=== PATIENT | male | born 1990 | race Caucasian/White ===

== ENCOUNTER 2019-10-24 13:30 | Emergency (ER) | payer OTHER, SELFPAY ==
[2019-10-24 13:33] VITALS: BP 136/96; PULSE 62; RESP 15; TEMP 36.7; O2SAT 98
--- NOTE | 2019-10-24 13:56 | ED.GENADUL_ITS ---
Discharge Plan Disposition Patient Disposition: HOME Condition: Stable Discharge Details Chief Complaint: Headache Clinical Impression: Acute sinusitis Primary Care Provider: Bhaskar Prado ED Provider: Aleja Quesada Home Meds and New Rx's Prescriptions: New azithromycin [Zithromax] 500 mg tablet 500 mg PO DAILY 5 Days Qty: 5 RF: 0 methylprednisolone [Medrol (Primo)] 4 mg tablets,dose pack See Rx Instructions .ROUTE .COMPLEX Qty: 21 RF: 0 Discharge Instructions Instructions: Sinusitis (ED) Additional Instructions: Take the antibiotics and steroids until finished. Drink plenty of fluids and get plenty of rest. Alternate tylenol and motrin as needed and directed for pain. Follow-up with your scheduled appointment with your primary care doctor on Friday. Return to the emergency department if you develop any worsening or new concerning symptoms. Discharge Data Discharge Date/Time-TO BE ENTERED AT DEPARTURE: 10/24/19 15:09 Discharge Physician: Aleja Quesada Medical Decision Making 1400 -- 29-year-old male with no significant past medical history presents with headache for the past 5 days. States headache is sharp and throbbing and located in his forehead and behind his right eye. He denies a history of migraines, recent injury, fever, ear pain or sore throat. He does admit to recent nasal congestion but denies any green nasal discharge. He denies sudden onset headache or thunderclap quality, so not consistent with subarachnoid hemorrhage. He denies any fever or posterior occipital pain and no report of altered mental status, so not consistent with meningitis. He has tenderness to palpation of the bilateral frontal and right maxillary sinuses. He appears nontoxic. No focal deficits on exam. Differential diagnosis includes sinusitis, dehydration, tension headache. Patient states he is mainly concerned about the possibility of aneurysm as his sister has a history of brain aneurysm. Offered patient to place an IV and give migraine cocktail, fluids and possibly CTA head and neck. He would rather hold on IV at this time. Will obtain CT head. 1500 --CT head notes acute sinusitis but no other acute intracranial findings. Patient feels good to go at this time. He appears nontoxic. He is easily ambulatory around room and appears in no acute distress. We will send with a prescription for antibiotics and steroids. Advised to follow up with the primary care doctor for re-evaluation. Usual and customary return precautions given prior to discharge. Medical Records Medical records reviewed: Yes I reviewed the patient's medical records. Imaging Data Radiologic Study: Radiologist's impression: CT Head Without Contrast Exam date and time: 10/24/2019 2:11 PM Age: 29 years old Clinical indication: Other: Headache behind R eye/foreheache, R/O mass, tumor, bleed. TECHNIQUE: Imaging protocol: Computed tomography of the head without contrast. Radiation optimization: All CT scans at this facility use at least one of these dose optimization techniques: automated exposure control; mA and/or kV adjustment per patient size (includes targeted exams where dose is matched to clinical indication); or iterative reconstruction. COMPARISON: No relevant prior studies available. FINDINGS: Brain: The ventricles and the cortical sulci are within normal limits. There is no evidence of acute hemorrhage, mass or shift. There is no evidence of an acute cortical or major vascular territory infarct. No abnormal extra-axial collections are identified. Ventricles: No significant ventricular enlargement/hydrocephalus. Bones/joints: There is no acute bony abnormality Sinuses: There is sinus mucoperiosteal thickening on the right.. There is some fluid layering dependently within the right maxillary antrum. There is mucoperiosteal thickening and some fluid layering dependently within the right frontal sinus. Mastoid air cells: No significant mastoid opacification Soft tissues: Subcutaneous soft tissues are unremarkable IMPRESSION: 1. Right-sided sinus disease. Small amount of fluid is seen layering dependently within the right maxillary antrum, right frontal sinus. Correlate clinically for acute sinusitis. 2. No significant or acute intracranial findings. A HPI General Mode of arrival: ambulatory . Date/Time Provider Initiated Documentation: 10/24/19 13:42 . Limitations to Documentation: no limitations . Information obtained by: patient . History of Present Illness 29 year old M presents to the emergency department with the chief complaint of headache, and is localized to the head and face. Patient started experiencing this day(s) (5) and it has been constant. Medication improves symptom(s), No exacerbating factors reported . Patient notes headaches; denies chest pain, cough, diaphoresis, fever/chills, loss of appetite, malaise, nausea/vomiting, ra sh, seizure, shortness of breath, syncope and weakness. Patient did receive the following treatments prior to arrival, NSAID and other (tylenol) Related Data Home Medications Medication Instructions Recorded Confirmed azithromycin [Zithromax] 500 mg PO DAILY 5 Days #5 tab 10/24/19 methylprednisolone [Medrol (Primo)] See Rx Instructions .ROUTE 10/24/19 .COMPLEX #21 dose pk Previous Rx's Medication Instructions Recorded azithromycin [Zithromax] 500 mg PO DAILY 5 Days #5 tab 10/24/19 methylprednisolone [Medrol (Primo)] See Rx Instructions .ROUTE 10/24/19 .COMPLEX #21 dose pk Allergies Allergy/AdvReac Type Severity Reaction Status Date / Time cefaclor [From [facility]] Allergy Severe HIVES Unverified 10/24/19 13:39 Penicillins Allergy Severe HIVES Unverified 10/24/19 13:39 General Stated Complaint: Headache KYLE: 3 Review of Systems All systems reviewed & are unremarkable except as noted in HPI and below Constitutional Constitutional: Reports as per HPI, Denies chills, Denies fever(s) and Reports headache(s) Eyes Eyes: Denies blurry vision ENT Ears, Nose, Mouth, and Throat: Denies dizziness, Reports headache(s), Denies sore throat and Denies throat swelling Cardiovascular Cardiovascular: Denies chest pain and Denies dyspnea Respiratory Respiratory: Denies cough and Denies dyspnea Gastrointestinal Gastrointestinal: Denies abdominal pain, Denies diarrhea and Denies vomiting Genitourinary Genitourinary: Denies hematuria and Denies dysuria Musculoskeletal Musculoskeletal: Denies back pain and Denies numbness Integumentary/Breasts Skin/Breast: Denies lesions and Denies rash Neurologic Neurologic: Denies dizziness, Reports headache(s), Denies focal weakness and Denies numbness Allergic/Immunologic Allergic/Immunologic: Denies throat swelling [facility] Medical History No significant past medical history (Acute) Surgical History H/O shoulder surgery (Chronic) Social History Smoking/Tobacco Use Status: Never Alcohol Intake: current Alcohol Intake frequency: holidays/special occasions only Drug use: Never Substance use type: does not use Do you feel safe at home: Yes Do you feel safe in your relationship?: Yes Exam Const General: cooperative and healthy appearing Orientation: alert and awake HENMT Head: normal to inspection Ears: hearing grossly normal bilaterally, external ears normal and TM's normal bilaterally General nose exam: external nose normal Face and sinus: normal facial exam and sinus tenderness frontal (bilateral) and maxillary (R side) Mouth: oral mucosae normal Teeth and gingiva: dentition normal Throat: posterior oropharynx normal Eyes General: appearance normal, both eyes and all related structures Eyelids: eyelids normal Pupils: PERRL EOM: EOM intact bilaterally Neck Neck: normal visual inspection Lymphatic: no lymphadenopathy noted Chest Chest: normal inspection of the chest Resp Effort & Inspection: normal respiratory effort and able to speak in complete sentences Cardio Rate: regular rate Skin General skin exam: no rashes or lesions noted Neuro General: alert and awake Cranial Nerves: CN's II-XI intact bilaterally Cognition: normal cognition Speech: speech normal Gait: normal gait Motor: muscle tone normal throughout and strength 5/5 throughout Sensory Exam: no sensory deficits noted Extrem General: normal to inspection, full ROM and normal capillary refill Psych Appearance: grossly normal Mental Status: mental status grossly normal Speech and Movement: speech and movement normal Affect: normal affect Thought Process: normal Course Vital Signs Vital signs: Vital Signs Temperature 98.1 F 10/24/19 13:33 Pulse 62 10/24/19 13:33 Respiratory Rate 15 10/24/19 13:33 Blood Pressure 136/96 H 10/24/19 13:33 Pulse Oximetry 98 10/24/19 13:33 Temperature 98.1 F 10/24/19 13:33 Temperature Source Temporal Artery Scan 10/24/19 13:33 Pulse 62 10/24/19 13:33 Respiratory Rate 15 10/24/19 13:33 Respiratory Effort Non-Labored 10/24/19 13:37 Blood Pressure 136/96 H 10/24/19 13:33 Pulse Oximetry 98 10/24/19 13:33 Oxygen Delivery Method Room Air 10/24/19 13:33 Oxygen Flow Rate 0 10/24/19 13:33 Pain Level 5 10/24/19 13:33
--- NOTE | 2019-10-24 14:26 | DI.CT_ITS ---
EXAM: CT HEAD WO CLINICAL HISTORY: headache behind R eye/forehead TECHNIQUE: Without contrast COMPARISON: No exams were available for comparison FINDINGS: The ventricles and sulci are consistent with the patient's age. No acute intracranial hemorrhage is present. There is no acute midline shift or mass effect. The ventricles are intact. The basilar ci sterns are patent. There is mucosal thickening in the right maxillary sinus. There does appear to be a fluid level in the right maxillary sinus. There is opacification of a few right ethmoid air cells and mucosal thickening in the right frontal sinuses. The remaining visualized paranasal sinuses are clear as are the mastoid air cells. The calvarium is intact. IMPRESSION: 1. No acute intracranial process. 2. Findings of right sinus disease. Acute sinusitis should be considered. Please correlate clinical ly.
--- NOTE | 2019-10-24 14:51 | DI.VRAD_ITS ---
PROCEDURE INFORMATION: Exam: CT Head Without Contrast Exam date and time: 10/24/2019 2:11 PM Age: 29 years old Clinical indication: Other: Headache behind R eye/foreheache, R/O mass, tumor, bleed. TECHNIQUE: Imaging protocol: Computed tomography of the head without contrast. Radiation optimization: All CT scans at this facility use at least one of these dose optimization techniques: automated exposure control; mA and/or kV adjustment per patient size (includes targeted exams where dose is matched to clinical indication); or iterative reconstruction. COMPARISON: No relevant prior studies available. FINDINGS: Brain: The ventricles and the cortical sulci are within normal limits. There is no evidence of acute hemorrhage, mass or shift. There is no evidence of an acute cortical or major vascular territory infarct. No abnormal extra-axial collections are identified. Ventricles: No significant ventricular enlargement/hydrocephalus. Bones/joints: There is no acute bony abnormality Sinuses: There is sinus mucoperiosteal thickening on the right.. There is some fluid layering dependently within the right maxillary antrum. There is mucoperiosteal thickening and some fluid layering dependently within the right frontal sinus. Mastoid air cells: No significant mastoid opacification Soft tissues: Subcutaneous soft tissues are unremarkable IMPRESSION: 1. Right-sided sinus disease. Small amount of fluid is seen layering dependently within the right maxillary antrum, right frontal sinus. Correlate clinically for acute sinusitis. 2. No significant or acute intracranial findings. A Dictated and Authenticated by: Marline Pettit MD. Ordering:DEZ Masterson MD
[2019-10-24 15:07] VITALS: BP 156/109; PULSE 60; O2SAT 98
== END 2019-10-24 15:09 | disposition home or self-care (01) ==
PROVIDERS: Emergency Provider Physician Assistant; PCP Family Medicine
DX: J01.80 Other acute sinusitis (principal)
CPT/HCPCS: 99284; 70450; 99285

== ENCOUNTER 2020-02-05 19:29 | Emergency (ER) | payer OTHER, SELFPAY ==
[2020-02-05 19:34] VITALS: BP 155/90; PULSE 78; RESP 16; TEMP 36.9; O2SAT 98
--- NOTE | 2020-02-05 19:52 | ED.GENADUL_ITS ---
Discharge Plan Disposition Patient Disposition: HOME Condition: Stable Discharge Details Chief Complaint: Cellulitis Clinical Impression: Hematoma Primary Care Provider: Bhaskar Prado ED Provider: Abdulkadir Motta Home Meds and New Rx's Prescriptions: New clindamycin HCl 150 mg capsule 450 mg PO TID 7 Days Qty: 63 RF: 0 Discharge Instructions Instructions: Hematoma (ED) Additional Instructions: Elevated above level of heart to reduce pain and swelling. Take antibiotics as prescribed. Please take probiotic or live culture once daily while on the antibiotic. Warm heat to area to speed healing. Return for worsening swelling, fever, or any other concerns. 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 Concern for developing cellulitis. I did perform a bedside ultrasound which shows a an approximately 2 x 4 cm hematoma. Discussed that these can become necrotic and did discuss with him myositis ossificans. He will perform gentle heat, massage, I will place him on a course of clindamycin. He is to take a probiotic during the use of the antibiotic. Discussed with him indications to seek reevaluation. He is stable for discharge home at this time. HPI General Mode of arrival: ambulatory . Date/Time Provider Initiated Documentation: 02/05/20 19:34 . Limitations to Documentation: no limitations . Information obtained by: patient . History of Present Illness 29 year old M presents to the emergency department with the chief complaint of R medial calf swelling, overlying erythema, Quality is described as dull and constant, and is localized to the left and lower extremity. Patient reports no radiation. Patient started experiencing this day(s) and it has been constant. No relieving factors improve symptom(s), No exacerbating factors reported . Patient did receive the following treatments prior to arrival, none Related Data Home Medications Medication Instructions Recorded Confirmed clindamycin HCl 450 mg PO TID 7 Days #63 cap 02/05/20 Previous Rx's Medication Instructions Recorded clindamycin HCl 450 mg PO TID 7 Days #63 cap 02/05/20 Allergies Allergy/AdvReac Type Severity Reaction Status Date / Time cefaclor [From Ceclor] Allergy Severe HIVES Unverified 02/05/20 19:37 Penicillins Allergy Severe HIVES Unverified 02/05/20 19:37 General Stated Complaint: Cellulitis KYLE: 5 Review of Systems Narrative: 6 systems reviewed and otherwise negative [facility] Medical History No significant past medical history (Acute) Social History Smoking/Tobacco Use Status: Current-Occasional Tobacco Type: cigarettes Alcohol Intake: current Alcohol Intake frequency: a few times a week Drug use: Never Substance use type: does not use Do you feel safe at home: Yes Do you feel safe in your relationship?: Yes Exam Narrative Exam Narrative: GEN: awake, alert, oriented 3. Pleasant, well groomed, interactive. HEAD: Normocephalic, atraumatic ENT: Mucous membranes moist, External ear exam unremarkable EYES: PERRL, EOMI NECK: Full ROM, no WAN, no menigismus EXT: Full ROM, the right medial anterior calf has an area of palpable hematoma with overlying erythema that blanches to the touch. There is no vesicles or raised rash. There is no posterior tenderness, no cords or asymmetry. Neuro: Grossly normal neurologic exam, conversant, interactive. Psych: Speech fluent, thoughts congruent, affect normal Course Vital Signs Vital signs: Vital Signs Temperature 36.9 C 02/05/20 19:34 Pulse 78 02/05/20 19:34 Respiratory Rate 16 02/05/20 19:34 Blood Pressure 155/90 H 02/05/20 19:34 Pulse Oximetry 98 02/05/20 19:34 Temperature 36.9 C 02/05/20 19:34 Pulse 78 02/05/20 19:34 Respiratory Rate 16 02/05/20 19:34 Respiratory Effort Non-Labored 02/05/20 19:39 Blood Pressure 155/90 H 02/05/20 19:34 Pulse Oximetry 98 02/05/20 19:34 End Tidal Co2 1 02/05/20 19:34
[2020-02-05] MEDS: Clindamycin 150 MG CAP, 12 CAPS/BTL 450 MG PO (19:59)
== END 2020-02-05 20:00 | disposition home or self-care (01) ==
PROVIDERS: Emergency Provider Emergency Medicine; PCP Family Medicine
DX: S80.11XA Contusion of right lower leg, initial encounter (principal); X58.XXXA Exposure to other specified factors, initial encounter; L53.8 Other specified erythematous conditions
CPT/HCPCS: 99283

== ENCOUNTER 2021-03-11 16:31 | Emergency (ER) | payer OTHER, SELFPAY ==
--- NOTE | 2021-03-11 16:28 | ED.GENADUL_ITS ---
Discharge Plan Disposition Patient Disposition: HOME Condition: Good Discharge Details Clinical Impression: AC separation, type 3 Primary Care Provider: Bhaskar Prado ED Provider: Tram Jaquez Home Meds and New Rx's Prescriptions: New morphine 15 mg tablet 15 mg PO Q8H PRNQty: 3 RF: 0 Discharge Instructions Additional Instructions: Please follow-up with orthopedic Several times a day as much your arm hang down like a pendulum and allow chin raw [id number] from shoulder to shoulder, do not attempt to do any heavy lifting Wear sling 1 week Call orthopedics on Friday Ibuprofen 600 mg every 8 hours with food Tylenol as needed for breakthrough pain I have given you several tablets of morphine, this medication is highly addictive and you should not drive for 8 hours after taking this medication, it can also cause constipation Please only take this medication for pain uncontrolled with ibuprofen and Tylenol Discharge Data Discharge Date/Time-TO BE ENTERED AT DEPARTURE: 03/11/21 18:09 Medical Decision Making Patient declines oxycodone, states that this medication does not work for him. When asked what medications are effective, patient states that Dilaudid is effective . I did discuss that this is not a typical medication choice for this injury but I was willing to supply for tablet of morphine 15 mg IR Patient placed in sling I did offer orthopedic referral, however patient states he is going to follow-up with [facility] where he has previously had surgery Discharged home in stable condition with stable vital Differential Diagnosis Differential Diagnosis: AC joint separation, shoulder dislocation, fracture, contusion Medical Records Medical records reviewed: Yes I reviewed the patient's medical records. HPI General Mode of arrival: ambulatory . Date/Time Provider Initiated Documentation: 03/11/21 16:34 . Limitations to Documentation: no limitations . Information obtained by: patient . HPI Narrative: 30-year-old male presents after a wrestling injury. Patient was wrestling with his when he slammed into his left shoulder. He has noticed a deformity and had pain since that time. He denies any strength or sensation change. He denies any neck pain, chest pain, shortness of breath. The event occurred approximately an hour prior to arrival. He describes the pain as sharp. He denies any head injury or loss of consciousness. Related Data Home Medications Medication Instructions Recorded Confirmed morphine 15 mg PO Q8H PRN #3 tab 03/11/21 Previous Rx's Medication Instructions Recorded morphine 15 mg PO Q8H PRN #3 tab 03/11/21 Allergies Allergy/AdvReac Type Severity Reaction Status Date / Time cefaclor [From Ceclor] Allergy Severe HIVES Unverified 03/11/21 16:45 Penicillins Allergy Severe HIVES Unverified 03/11/21 16:45 General KYLE: 5 Review of Systems Narrative: Review of systems obtained x7 aside from where indicated in HPI PFSH Medical History (Updated 03/11/21 @ 17:29 by ISAMAR Caruso) No significant past medical history Surgical History H/O shoulder surgery Social History Smoking/Tobacco Use Status: Current-Occasional Tobacco Type: smokeless tobacco Smoking risk assessment performed?: Yes Alcohol Intake: current Alcohol Intake frequency: a few times a week Drug use: Never Substance use type: does not use Do you feel safe at home: Yes Do you feel safe in your relationship?: Yes Exam Const General: cooperative and acute distress HENMT Other: No visible evidence of trauma Neck Other: No midline tenderness Resp Effort & Inspection: normal respiratory effort Cardio Rate: regular rate Skin General skin exam: no rashes or lesions noted Neuro General: patient alert and patient oriented x3 Other: GCS 15 Extrem Shoulder/upper arm images: 1. Deformity noted, no evidence of open fracture Other: Neurovascularly intact
--- NOTE | 2021-03-11 16:30 | DI.RAD_ITS ---
Exam(s) XR SHOULDER LT COMPLETE 2+V EXAM: XR SHOULDER LT COMPLETE 2+V CLINICAL HISTORY: left shoulder pain, question ac separation. TECHNIQUE: 2D digital imaging was performed. COMPARISON: CR RIGHT SHOULDER COMP POST REDUC from 07/13/2013 FINDINGS: BONES: No acute fracture is present. No bony destructive lesion is seen. JOINTS: The distal clavicle is superiorly located relative to the acromion. There is also a widening of the cortical clavicular distance. SOFT TISSUE: Normal. IMPRESSION: Findings consistent with a left acromioclavicular separation. DATA REPOSITORY: RADIATION DOSE DELIVERED:
[2021-03-11 16:33] VITALS: BP 157/103; PULSE 105; RESP 20; TEMP 36.7; O2SAT 97
--- NOTE | 2021-03-11 17:01 | DI.VRAD_ITS ---
PROCEDURE INFORMATION: Exam: XR Left Shoulder Exam date and time: 03/11/2021 4:39 PM Age: 30 years old Clinical indication: Injury or trauma; Other: Playing with kid; Sprain or strain; Shoulder; Left; Injury date: 03/11/21 TECHNIQUE: Imaging protocol: XR Left shoulder. Views: 2 or more views. COMPARISON: No relevant prior studies available. FINDINGS: Bones/joints: Left acromioclavicular separation. No fracture identified. The distal clavicle is dislocated superiorly and there is marked widening of the coracoclavicular space. Soft tissues: Normal. IMPRESSION: Left acromioclavicular separation. Dictated and Authenticated by: Soco Heaton MD. Ordering:MICKY Ugalde MD
[2021-03-11] MEDS: HYDROmorphone 2 MG TAB PO (18:05)
== END 2021-03-11 18:09 | disposition home or self-care (01) ==
PROVIDERS: Emergency Provider Physician Assistant; PCP Family Medicine
DX: S43.121A Dislocation of right acromioclavicular joint, 100%-200% displacement, initial encounter (principal); W18.39XA Other fall on same level, initial encounter; Y93.83 Activity, rough housing and horseplay
CPT/HCPCS: 99283; 73030

== ENCOUNTER 2021-03-13 14:59 | Outpatient (CLI) | payer OTHER, SELFPAY ==
--- NOTE | 2021-03-13 14:45 | DI.RAD_ITS ---
Exam(s) XR CLAVICLE LT EXAM: XR CLAVICLE LT CLINICAL HISTORY: F/U TECHNIQUE: COMPARISON: CR,XR XR SHOULDER LT COMPLETE 2+V from 03/11/2021 FINDINGS: Two views were obtained. Previously noted AC separation is again seen. No bony abnormality seen inv olving the clavicle or acromion as visualized on these two views. IMPRESSION: RADIATION DOSE DELIVERED: Total DLP
== END 2021-03-13 15:00 | disposition home or self-care (01) ==
LOC: DIORS 15:00
PROVIDERS: PCP Family Medicine; Referring Provider Family Medicine; Visit Provider Student in an Organized Health Care Education/Training Program
DX: S43.122D Dislocation of left acromioclavicular joint, 100%-200% displacement, subsequent encounter (principal)
CPT/HCPCS: 73000

== ENCOUNTER 2021-03-14 02:58 | Outpatient (CLI) | payer OTHER, SELFPAY ==
[2021-03-14 11:34] LABS: Source Nasal/Nares
[2021-03-14 15:18] LABS: COVID-19 PCR Negative (Negative)
== END 2021-03-14 02:59 | disposition home or self-care (01) ==
LOC: LBO 02:58
PROVIDERS: PCP Family Medicine; Visit Provider Student in an Organized Health Care Education/Training Program
DX: Z20.822 Contact with and (suspected) exposure to COVID-19 (principal); Z01.818 Encounter for other preprocedural examination
CPT/HCPCS: 87635

== ENCOUNTER 2021-03-15 08:22 | Day surgery (SDC) | payer OTHER, SELFPAY ==
[2021-03-15] VITALS (8 sets, daily range): BP systolic 98–140; BP diastolic 48–88; PULSE 57–69; RESP 15–16; TEMP 36.3–37; O2SAT 96–100; BMI 31.6
[2021-03-15] MEDS: Lactated Ringers 1,000 ML 100 ML IV (09:12)
--- NOTE | 2021-03-15 09:54 | W.ANESPRE ---
General Info Date of Service Date Performed: 03/15/21 Height: 5 ft 11 in Weight: 102.9 kg Body Mass Index (BMI): 31.6 Surgical Procedure: Operation Date: 03/15/21 12:10 Proposed Procedures Side Surgeon p ACROMIOCLAVICULAR JOINT OPEN REDUCTION INTERNAL FIXATION Left Bennie Garcia MD Meds Allergies and Home Medications Allergies Allergy/AdvReac Type Severity Reaction Status Date / Time cefaclor [From Ceclor] Allergy Severe HIVES Unverified 03/15/21 08:47 Penicillins Allergy Severe HIVES Unverified 03/15/21 08:47 Home Medication Medication Instructions Recorded morphine 15 mg PO Q8H PRN #3 tab 03/11/21 Current Visit Medications: Current Medications Generic Name Dose Route Start Last Admin Trade Name Freq PRN Reason Stop Dose Admin Ringer's Solution 1,000 mls @ 100 mls/hr 03/15/21 06:00 03/15/21 09:12 IV 04/13/21 23:59 100 mls/hr INFUSION ADDY Administration Cefazolin Sodium 3,000 mg/ 100 mls @ 200 mls/hr 03/15/21 06:00 Sodium Chloride IVPB 03/15/21 16:00 PREOP ADDY IV Miscellaneous Supplies 1 each 03/15/21 06:00 Iv Access IV 04/13/21 23:59 DIRECTED ADDY Oxycodone HCl 5 - 10 mg 03/15/21 07:17 Oxycodone 5 Mg Tab PO Q4H PRN PRN Sodium Chloride 0 ml 03/15/21 06:00 Normal Saline Flush 10 Ml Syr IV 04/13/21 23:59 PRN PRN Sodium Chloride 0 ml 03/15/21 06:00 Normal Saline 10 Ml Vial IJ 04/13/21 23:59 DIRECTED PRN Sterile Water 0 ml 03/15/21 06:00 Water,Injection,Sterile 10 Ml Vial IJ 04/13/21 23:59 DIRECTED PRN PFSH Active Problems Active Problems: Problem Status Onset Code AC separation, type 5 03/11/21 S43.109A Medical History Medical History No significant past medical history Surgical History Surgical History H/O shoulder surgery (R) RTCR, BT Tobacco Smoking/Tobacco Use Status: Current-Occasional Tobacco Type: smokeless tobacco Alcohol Alcohol Intake: current Alcohol intake frequency: a few times a week Substance Use Substance use: Never Substance use type: does not use Vital Signs and Lab Results Vital Signs Most Recent Vital Signs in EMR: Most Recent Vital Signs Temp Pulse Resp BP Pulse Ox 37.0 C 68 16 140/88 100 03/15/21 08:49 03/15/21 08:49 03/15/21 08:49 03/15/21 08:49 03/15/21 08:49 Lab Results Blood Type / Crossmatch: No Data to Display Complete Blood Count: No Data to Display Complete Metabolic Panel: No Data to Display Liver Function Panel: No Data to Display Coagulation Panel: No Data to Display Cardiac Panel: No Data to Display Arterial Blood Gas: No Data to Display Venous Blood Gas: No Data to Display Pancreas Panel: No Data to Display Thyroid Panel: No Data to Display Infectious Disease: Coronavirus (COVID-19)(PCR) Negative (Negative) 03/14/21 08:39 03/14/21 Coronavirus 2019 Source Nasal/nares 03/14/21 08:39 03/14/21 Blood Cultures: No Data to Display Toxicology Panel: No Data to Display Anesthesia Assessment and Plan Anesthesia History Personal History: No History of Anesthesia Complications Family History: No Family History of Anesthesia Complications Exercise Tolerance Exercise Tolerance: Metabolic Equivalents>4 Pertinent Negatives Pertinent Negatives: No Symptoms of GERD, No Major Cardiovascular Symptoms or Complaints, No Major Pulmonary Symptoms or Complaints and No History of CVA/TIA Cardiac & Pulmonary Exam Cardiac Exam: Normal S1/S2 Heart Sounds Pulmonary Exam: Clear Bilateral Breath Sounds Airway Exam Known Difficult Airway: No Mallampati Class: 3 Mouth Opening: Normal (> 3cm) Thyromental Distance: Greater than 3 cm Neck Range of Motion: Full ROM Neck Circumference: Normal Teeth Condition: Normal Dentition ASA Classification ASA Score: ASA 2 Emergency Case?: No NPO Status NPO Status: NPO Clears >2 hours, Solids >8 hours Anesthesia Plan Resuscitation Status: Full Code Anesthesia Technique: General Anesthesia Airway Planned: LMA Monitors Used: Standard Monitors
[2021-03-15] MEDS: ceFAZolin 3,000 MG in Normal Saline 100 ML 200 MG IVPB (13:05)
--- NOTE | 2021-03-15 14:07 | W.ANESNERVE ---
Nerve Block Single Injection Procedure Date and Time Date Performed: 03/15/21 Procedure Start: 12:19 Location Where Procedure Performed Procedure Location: PACU Reason Performed: Postoperative Analgesia Requesting Provider: Bennie Garcia Timeout Performed Timeout Performed: Yes Monitoring Used ECG, Blood Pressure and SpO2 Sterility Sterility: Hand Hygiene, Surgical Cap, Surgical Mask, Sterile Gloves, Eye Protection and Chlorhexidine Sedation Given During Procedure Sedation Given (Indicate Dose Given): Versed IV Dose:: 4 mg Patient Mental Status Patient Mental Status: Sedate with meaningful communication Nerve Block 1st Nerve Block: Laterality: Left Block Type: Interscalene Needle / Catheter Used: 80mm SonoPlex II Local Anesthetic Bolus (Indicate Dose Given): Lidocaine used for local infiltration of skin, Injected in 3-5ml increments after negative blood aspiration, Bupivacaine 0.5% Dose:: 10 cc and Exparel Dose:: 10 cc Additives (Indicate Dose Given): None Ultrasound: Sterile probe cover and gel used Ultrasound Image Saved?: Yes Nerve Stimulator: Not Used Paresthesia: None Procedure Tolerated: No Complications and Patient tolerated well Procedure Outcome: Successful Performed By: Becky Kwon Supervised By: Erich Nolen 2nd Nerve Block: Laterality: Left Block Type: Superficial Cervical Plexus Needle / Catheter Used: 80mm SonoPlex II Local Anesthetic Bolus (Indicate Dose Given): Lidocaine used for local infiltration of skin, Injected in 3-5ml increments after negative blood aspiration and Bupivacaine 0.375% Dose:: 7 cc Additives (Indicate Dose Given): None Ultrasound: Sterile probe cover and gel used Ultrasound Image Saved?: Yes Nerve Stimulator: Not Used Paresthesia: None Procedure Tolerated: No Complications and Patient tolerated well Procedure Outcome: Successful Performed By: Becky Kwon Supervised By: Erich Nolen
--- NOTE | 2021-03-15 14:27 | DI.RAD_ITS ---
Exam(s) XR SHOULDER LT 1V EXAM: XR SHOULDER LT 1V CLINICAL HISTORY: left acromiclavicular joint ORIF TECHNIQUE: 2D and realtime digital imaging was performed. CONTRAST MATERIAL: Refer to procedure report. COMPARISON: No exams were available for comparison FINDINGS: Fluoroscopy was provided for Dr. Garcia during the performance of a open reduction and fixation of th e left AC joint separation. Please refer to the procedure report for complete details. Ka,r=1.34 mGy IMPRESSION: RADIATION DOSE DELIVERED:
--- NOTE | 2021-03-15 15:03 | W.ANESPOSTOP ---
Postoperative Evaluation Date, Time and Location Date Performed: 03/15/21 Time Performed: 15:03 Patient Location: PACU Vital Signs Most Recent Imported Vital Signs: Most Recent Vital Signs Temp Pulse Resp BP Pulse Ox 36.4 C L 60 16 100/67 99 03/15/21 14:44 03/15/21 14:44 03/15/21 14:44 03/15/21 14:44 03/15/21 14:44 Pain Score Most Recent Pain Score: Most Recent Pain Score Pain Level 6 03/15/21 08:49 Assessment Mental Status: Arousable with meaningful communication Airway and Respiratory Function: Patent airway with normal (patient baseline) respiratory exam Cardiovascular Function: Hemodynamically Stable Hydration Status: Adequately Hydrated Nausea & Vomiting: No Nausea or Vomiting Pain: Pt. Denies Any Pain Peripheral Nerve Block: Regional nerve block not resolved at time of post operative discharge
--- NOTE | 2021-03-15 15:10 | W.PM.DSUDISC ---
Discharge Plan Disposition Patient Disposition: HOME Condition: Stable Discharge Details Reason For Visit: (L) SHOULDER SEPARATION Attending Provider: Bennie Garcia Primary Care Provider: Bhaskar Prado Home Meds and New Rx's Prescriptions: New aspirin 81 mg tablet,delayed release (DR/EC) 81 mg PO DAILY 14 Days Qty: 14 RF: 0 naproxen 250 mg tablet 250 - 500 mg PO BID PRN (Reason: Moderate pain or swelling) Qty: 60 RF: 0 hydromorphone [Dilaudid] 2 mg tablet 2 mg PO Q4H PRN (Reason: severe pain) Qty: 16 RF: 0 Discontinued morphine 15 mg tablet 15 mg PO Q8H PRNQty: 3 RF: 0 Discharge Instructions Additional Instructions: Surgery: AC joint ORIF with hook plate Activity: You should keep your arm at your side in a neutral position most of the time. Do not try to lift or raise your arm above your shoulder. You should use the sling whenever you are out of the house. At home it is best to remove the sling and rest the arm on a pillow at your side or support the operative side with your other hand. You may allow the arm to dangle at your side. A physical therapy prescription has been sent electronically to begin in about 2 weeks. Postop protocol: Non-weightbearing except light use for ADLs Sling when ambulatory or out of the home for 6 weeks Immediate gentle passive and active range of motion OK Do not go above 90 degrees of forward elevation or abduction for 8 weeks then progress to full Do not force end?range motion or start strengthening until plate is removed at 3 months Prescriptions: Aspirin 81 mg take 1 daily to prevent a blood clot for 2 weeks Naproxen 250 mg take 1-2 every 12 hours with a meal as needed for moderate pain Hydromorphone 2 mg take 1 every 4 hours as needed for severe pain You may use [id number] Tylenol (acetaminophen) as needed for mild pain. These pain medications may be taken all at once or in different combinations as needed. Also, recommend Colace (docusate) as a stool softener as surgery and pain medicine cause constipation. Dressings: Keep bandage on until follow-up. Please keep clean and dry. If it needs to be changed or falls off, please replace with a wide Band-Aid. Follow-up: 10-[address] Garcia You may take off the leg compression stockings this evening at home. You may also leave them on a few days longer if you have a history of leg swelling or edema. Let us know right away if you develop any redness, drainage, fevers, chest pain, or trouble breathing. Do not drink alcohol or drive for at least 24 hours after anesthesia. Please call the office during business hours with any questions or concerns. Referrals: Bennie Garcia MD [ [facility] STAFF PHYSICIAN] - Discharge Orders Discharge Orders: Discharge Order (Routine); Ordered 03/15/21 Ordered By: Bennie Garcia DS: Diagnosis Discharge Diagnosis (1) Acromioclavicular separation: Status: Acute
--- NOTE | 2021-03-15 15:26 | W.PM.OP ---
Date of service: 03/15/21 Time of Service: 13:30 Operative Note Operative Note DATE OF PROCEDURE: 03/15/21 PRE-OP DIAGNOSIS: Left high-grade shoulder separation POST-OP DIAGNOSIS: same PROCEDURE: Left AC joint open reduction internal fixation with hook plate, CPT #44896 SURGEON: Bennie Garcia DINING CAR CONDUCTOR: Edwin Bill ANESTHESIA TYPE: Local By Surgeon, General LMA/ETT and Primary Nerve Block Refer to Anesthesia Record Patient was transported to: PACU Patient's condition: stable Implants: Synthes 3.5mm LCP Clavicle Hook Plate System: 5-hole plate with 1x 3.5mm cortex screws and 3x 3.5mm locking screws Indications: Please see complete medical record for details. Findings: Complete disruption of both before meals and CC ligaments with superior displacement of the distal clavicle and horizontal and vertical instability Procedure Description: In the operating room, general anesthesia was induced. The patient was positioned supine on the operating room table. All bony prominences were well-padded. Preoperative antibiotics were administered. The left shoulder was prepped and draped in the usual sterile fashion. The correct patient, procedure, and side of the procedure were all verified prior to incision. The distal clavicle was superior and prominent. Fluoroscopic guidance used to confirm the location of the AC joint. 30 cc of 0.5% bupivacaine containing epinephrine was infiltrated about the planned superior distal clavicle and AC joint incision. Sharp dissection was carried through the skin and subcutaneous tissue exposing a denuded elevated distal clavicle. There were no supraclavicular nerves to preserve. A combination of blunt and sharp dissection was used to expose a few centimeters of the superior aspect of the distal clavicle taking care to elevate the periosteum and deep tissues in a full-thickness tissue sleeve. The AC joint had majority capsule and meniscal homologue still attached to the acromion so it was preserved. Metzenbaum scissors was used to open a small defect posterior to the AC joint for planned hook placement. Bone forceps were used to elevate the distal clavicle and inspect the coracoid and undersurface acromion for possible CC ligament repair. The CC ligaments were not readily identifiable but with provisional reduction of the clavicle the undersurface tissues had good opposition as well as reduction of the distal capsular and AC joint tissue still attached to the acromion. Hook plate templates were trialed starting with the 12 mm, which had difficulty reducing the distal clavicle as it was over reducing. The 15 mm hook had excellent reduction and good fixation strength. The 18 mm hook length under reduced of clavicle and was not in solid contact with the acromion. The 15 mm hook option was selected and a 5-hole plate 3.5mm LCP plate was inserted, distal clavicle reduced under direct visualization in both the horizontal and vertical planes, and clamped in place flush to the superior aspect of the distal clavicle. Fluoroscopy confirmed appropriate hook and plate placement as well as reduction of the AC joint. The middle oblong hole was then predrilled and an appropriate length 3.5 mm cortex screw inserted compression plate to bone. The next more medial and lateral screw sites were predrilled and fixed with 3.5 mm locking screws. The more anterior of the 2 distalmost screws was also predrilled and filled with a 3.5 mm locking screw. The cortex screw was final tightened. The construct was tested and demonstrate excellent vertical and good horizontal stability. There was no way to superiorly displaced the distal end of the clavicle relative to the acromion. All hardware was stable on testing. The deep wound was copiously irrigated with normal saline. The superior AC joint capsule as well as periosteum and deep tissues over the superior clavicle and acromion were closed using buried interrupted 2-0 Monocryl. Subcutaneous tissue was closed using 2-0 Monocryl in a buried fashion. The skin was closed with 3-0 Monocryl in a running subcuticular fashion. The incision was covered with skin glue followed by Mepilex bandage. The patient awoke from anesthesia without complication and was transferred to the recovery room in a stable condition.
--- NOTE | 2021-03-15 15:45 | NUR.NOTE ---
Nursing Note:03/15/21 Pt arrived to DSU via stretcher from PACU. During report, Charisma Villaseñor RN told this RN Pt requesting a Saline flush for his eyes. This nurse has no order for this intervention, in the past, anesthesia has administered saline flush to eyes post surgery for dry scratchy eyes. When asked by this RN to the Pt about the flush for the eyes, the patient states, one way or another I will get a flush down here. This nurse asked the Pt to understand we would try to help, but needed to go through proper channels. Charge nurse Margo Bill RN notified anesthesia via webex the need for Pt. Selene Land CRNA came over to DSU asking why can't we just give the flush. This nurse again stated no order for intervention, but this nurse could pull a flush from the [employer] for anesthesia if she was willing to administer. Flush was pulled by this nurse and handed to Selene Land CRNA who asked Pt if he would like her to administer, Pt had stated he could do it himself, so she handed saline flush to Pt who flushed his eyes for his dry contacts discomfort.HE
== END 2021-03-15 16:10 | disposition home or self-care (01) ==
PROVIDERS: PCP Family Medicine; Visit Provider Student in an Organized Health Care Education/Training Program
PROC: (CPT 23515; principal; 2021-03-15 12:00)
DX: S43.102A Unspecified dislocation of left acromioclavicular joint, initial encounter (principal); Y93.83 Activity, rough housing and horseplay
CPT/HCPCS: 23550; 73020; J0690; J1100; J1885; J2001; J2250; J2405; J2704

== ENCOUNTER 2021-03-28 08:55 | Outpatient (CLI) | payer OTHER, SELFPAY ==
--- NOTE | 2021-03-28 08:40 | DI.RAD_ITS ---
Exam(s) XR CLAVICLE LT EXAM: XR CLAVICLE LT CLINICAL HISTORY: f/u. TECHNIQUE: 2D digital imaging was performed. COMPARISON: CR XR CLAVICLE LT from 03/13/2021 FINDINGS: There has been interval surgery at the level of the left AC joint with placement of a dorsal plate wi th of the R which supports a metallic device through the AC joint with extension into the undersurfac e of the acromion and with subsequent realignment of the AC joint. No fracture. No loosening eviden t. Glenohumeral joint appears unremarkable. IMPRESSION: DATA REPOSITORY: RADIATION DOSE DELIVERED:
== END 2021-03-28 08:56 | disposition home or self-care (01) ==
LOC: DIORS 08:55
PROVIDERS: PCP Family Medicine; Referring Provider Family Medicine; Visit Provider Student in an Organized Health Care Education/Training Program
DX: S43.122D Dislocation of left acromioclavicular joint, 100%-200% displacement, subsequent encounter (principal)
CPT/HCPCS: 73000

== ENCOUNTER 2021-04-17 11:23 | Outpatient (CLI) | payer OTHER, SELFPAY ==
--- NOTE | 2021-04-17 11:00 | DI.RAD_ITS ---
Exam(s) XR CLAVICLE LT EXAM: XR CLAVICLE LT CLINICAL HISTORY: f/u TECHNIQUE: 2D digital imaging was performed. COMPARISON: CR XR CLAVICLE LT from 03/28/2021 FINDINGS: BONES: No acute fracture is present. No bony destructive lesion is seen. JOINTS: No dislocation present. There are stable postsurgical changes at the left AC joint. SOFT TISSUE: Normal. IMPRESSION: Stable postsurgical changes of the left AC joint. DATA REPOSITORY: RADIATION DOSE DELIVERED:
== END 2021-04-17 11:24 | disposition home or self-care (01) ==
LOC: DIORS 11:23
PROVIDERS: PCP Family Medicine; Referring Provider Family Medicine; Visit Provider Student in an Organized Health Care Education/Training Program
DX: S43.102D Unspecified dislocation of left acromioclavicular joint, subsequent encounter (principal); X58.XXXD Exposure to other specified factors, subsequent encounter
CPT/HCPCS: 73000

== ENCOUNTER 2021-06-13 12:56 | Outpatient (CLI) | payer OTHER, SELFPAY ==
--- NOTE | 2021-06-13 11:15 | DI.RAD_ITS ---
Exam(s) XR CLAVICLE LT EXAM: XR CLAVICLE LT CLINICAL HISTORY: clavicle fx f/u. TECHNIQUE: 2D digital imaging was performed. COMPARISON: CR XR CLAVICLE LT from 04/17/2021 FINDINGS: BONES: There are stable post operative changes present. No new fracture or dislocation. JOINTS: The joint spaces are well maintained. No joint effusion is present. SOFT TISSUE: Normal. IMPRESSION: Stable postoperative changes. DATA REPOSITORY: RADIATION DOSE DELIVERED:
== END 2021-06-13 12:57 | disposition home or self-care (01) ==
LOC: DIORS 12:56
PROVIDERS: PCP Family Medicine; Referring Provider Family Medicine; Visit Provider Student in an Organized Health Care Education/Training Program
DX: S43.035A Inferior dislocation of left humerus, initial encounter (principal); X58.XXXA Exposure to other specified factors, initial encounter
CPT/HCPCS: 73000

== ENCOUNTER 2021-06-21 11:22 | Day surgery (SDC) | payer OTHER, SELFPAY ==
[2021-06-21 07:57] LABS: Source Nasal/Nares
[2021-06-21 08:58] LABS: COVID-19 PCR Negative (Negative)
[2021-06-21 11:38] VITALS: BP 135/85; PULSE 66; RESP 16; TEMP 36.6; O2SAT 98
[2021-06-21] MEDS: Lactated Ringers 1,000 ML 100 ML IV (11:57)
--- NOTE | 2021-06-21 12:00 | DI.RAD_ITS ---
Exam(s) XR SHOULDER LT 1V EXAM: XR SHOULDER LT 1V CLINICAL HISTORY: LEFT SHOULDER AC SEPARATION. TECHNIQUE: 2D and realtime digital imaging was performed. COMPARISON: No exams were available for comparison FINDINGS: Fluoroscopy was provided in the OR for Dr. Hale. Hard copy images show placement of a fixation elisabeth te along the distal clavicle for fracture fixation. Please see procedure note for details. Fluoro time 8.7 seconds RADIATION DOSE DELIVERED: baldomero Soto=0.58 mGy
--- NOTE | 2021-06-21 12:16 | W.ANESPRE ---
General Info Date of Service Date Performed: 06/21/21 Height: 5 ft 11 in Weight: 104.78 kg Body Mass Index (BMI): 32.2 Surgical Procedure: Operation Date: 06/21/21 13:10 Proposed Procedures Side Surgeon p Hardware Removal shoulder Left Bennie Garcia MD Actual Procedures Side Surgeon p Hardware Removal Shoulder Left Bennie Garcia MD Meds Allergies and Home Medications Allergies Allergy/AdvReac Type Severity Reaction Status Date / Time cefaclor [From Ceclor] Allergy Severe HIVES Verified 06/21/21 11:44 Penicillins Allergy Severe HIVES Verified 06/21/21 11:44 Home Medication Medication Instructions Recorded Unknown [No Known Home Meds] 04/17/21 Current Visit Medications: Current Medications Generic Name Dose Route Start Last Admin Trade Name Freq PRN Reason Stop Dose Admin Ringer's Solution 1,000 mls @ 100 mls/hr 06/21/21 06:00 06/21/21 11:57 IV 07/20/21 23:59 100 mls/hr INFUSION ADDY Administration Cefazolin Sodium 3,000 mg/ 100 mls @ 200 mls/hr 06/21/21 06:00 Sodium Chloride IVPB 06/21/21 16:00 PREOP ADDY IV Miscellaneous Supplies 1 each 06/21/21 06:00 Iv Access IV 07/20/21 23:59 DIRECTED ADDY Oxycodone HCl 5 - 10 mg 06/21/21 12:07 Oxycodone 5 Mg Tab PO Q4H PRN PRN Sodium Chloride 0 ml 06/21/21 06:00 Normal Saline Flush 10 Ml Syr IV 07/20/21 23:59 PRN PRN Sodium Chloride 0 ml 06/21/21 06:00 Normal Saline 10 Ml Vial IJ 07/20/21 23:59 DIRECTED PRN Sterile Water 0 ml 06/21/21 06:00 Water,Injection,Sterile 10 Ml Vial IJ 07/20/21 23:59 DIRECTED PRN PFSH Active Problems Active Problems: Problem Status Onset Code Acromioclavicular separation 03/11/21 S43.109A Medical History Medical History No significant past medical history Surgical History Surgical History H/O shoulder surgery (R) RTCR, BT Tobacco Smoking/Tobacco Use Status: Current-Occasional Tobacco Type: smokeless tobacco Alcohol Alcohol Intake: current Alcohol intake frequency: a few times a week Substance Use Substance use: Never Substance use type: does not use Vital Signs and Lab Results Vital Signs Most Recent Vital Signs in EMR: Most Recent Vital Signs Temp Pulse Resp BP Pulse Ox 36.6 C 66 16 135/85 98 06/21/21 11:38 06/21/21 11:38 06/21/21 11:38 06/21/21 11:38 06/21/21 11:38 Lab Results Blood Type / Crossmatch: No Data to Display Complete Blood Count: No Data to Display Complete Metabolic Panel: No Data to Display Liver Function Panel: No Data to Display Coagulation Panel: No Data to Display Cardiac Panel: No Data to Display Arterial Blood Gas: No Data to Display Venous Blood Gas: No Data to Display Pancreas Panel: No Data to Display Thyroid Panel: No Data to Display Infectious Disease: Coronavirus (COVID-19)(PCR) Negative (Negative) 06/21/21 07:45 06/21/21 Coronavirus 2019 Source Nasal/Nares 06/21/21 07:45 06/21/21 Blood Cultures: No Data to Display Toxicology Panel: No Data to Display Anesthesia Assessment and Plan Anesthesia History Personal History: No History of Anesthesia Complications Family History: No Family History of Anesthesia Complications Exercise Tolerance Exercise Tolerance: Metabolic Equivalents>4 Pertinent Negatives Pertinent Negatives: No Symptoms of GERD, No Major Cardiovascular Symptoms or Complaints, No Major Pulmonary Symptoms or Complaints and No History of CVA/TIA Cardiac & Pulmonary Exam Cardiac Exam: Normal S1/S2 Heart Sounds Pulmonary Exam: Clear Bilateral Breath Sounds Airway Exam Known Difficult Airway: No Mallampati Class: 3 Mouth Opening: Normal (> 3cm) Thyromental Distance: Greater than 3 cm Neck Range of Motion: Full ROM Neck Circumference: Normal Teeth Condition: Normal Dentition ASA Classification ASA Score: ASA 2 Emergency Case?: No NPO Status NPO Status: NPO Clears >2 hours, Solids >8 hours Anesthesia Plan Resuscitation Status: Full Code Anesthesia Technique: General Anesthesia Airway Planned: Endotracheal Tube Monitors Used: Standard Monitors
[2021-06-21 12:36] VITALS: BMI 32.2
[2021-06-21] MEDS: ceFAZolin 3,000 MG in Normal Saline 100 ML 200 MG IVPB (13:12)
[2021-06-21] MEDS: Bupivacaine 0.25% Pres-Free 10 ML VIAL (14:03)
[2021-06-21 14:31] VITALS: BP 105/54; PULSE 58; RESP 12; TEMP 36.5; O2SAT 100
--- NOTE | 2021-06-21 14:33 | W.PM.DSUDISC ---
Discharge Plan Disposition Patient Disposition: HOME Condition: Stable Discharge Details Reason For Visit: Left shoulder surgery Attending Provider: Bennie Garcia Primary Care Provider: Gemma Cevallos Home Meds and New Rx's Prescriptions: New naproxen 250 mg tablet 250 - 500 mg PO BID PRN (Reason: Moderate pain or swelling) Qty: 30 RF: 0 hydromorphone 2 mg tablet 2 mg PO Q4H PRN (Reason: severe pain) Qty: 7 RF: 0 Discharge Instructions Additional Instructions: Surgery: Left AC joint removal of hook plate Activity: Weightbearing as tolerated. May use sling for comfort for 1-2 weeks. A physical therapy prescription will be provided separately in the office at follow up if needed. Prescriptions: Naproxen 250 mg take 1-2 every 12 hours with a meal as needed for moderate pain Hydromorphone 2 mg take 1 every 4 hours as needed for severe pain You may use [id number] Tylenol (acetaminophen) as needed for mild pain. These pain medications may be taken all at once or in different combinations as needed. Also, recommend Colace (docusate) as a stool softener as surgery and pain medicine cause constipation. Dressings: Keep bandage on until follow-up. Please keep clean and dry for at least 1 week. If it needs to be changed or falls off, please replace with a wide Band-Aid. Follow-up: 10-[address] Garcia (07/04/21 at 2:30 PM) Let us know right away if you develop any redness, drainage, fevers, chest pain, or trouble breathing. Do not drink alcohol or drive for at least 24 hours after anesthesia. Please call the office during business hours with any questions or concerns. Referrals: Bennie Garcia MD [ [facility] STAFF PHYSICIAN] - Discharge Orders Discharge Orders: Discharge Order (Routine); Ordered 06/21/21 Ordered By: Bennie Garcia DS: Diagnosis Discharge Diagnosis (1) Acromioclavicular separation: Status: Acute
[2021-06-21 14:36] VITALS: BP 102/53; PULSE 57; RESP 11; TEMP 36.5; O2SAT 98
[2021-06-21 14:41] VITALS: BP 107/66; PULSE 56; RESP 12; TEMP 36.5; O2SAT 98
--- NOTE | 2021-06-21 15:00 | W.PM.OP ---
Date of service: 06/21/21 Time of Service: 13:30 Operative Note Operative Note DATE OF PROCEDURE: 06/21/21 PRE-OP DIAGNOSIS: Left AC joint retained hook plate POST-OP DIAGNOSIS: same PROCEDURE: Left AC joint removal of hook plate, CPT # 22323 SURGEON: Bennie Garcia GUITAR MAKER HAND: None None ANESTHESIA TYPE: Local By Surgeon and General LMA/ETT Refer to Anesthesia Record ESTIMATED BLOOD LOSS: 10 PATHOLOGY: none sent COMPLICATIONS: None Patient was transported to: PACU Patient's condition: stable Indications: Please see complete medical record for details. Findings: Healed and stable AC joint after hardware removal Procedure Description: In the operating room, general anesthesia was induced. The patient was positioned supine on the operating room table. All bony prominences were well-padded. Preoperative antibiotics were administered. The left distal clavicle was prepped and draped in the usual sterile fashion. The correct patient, procedure, and side of the procedure were all verified prior to incision. 30 cc of 0.5% bupivacaine containing epinephrine was infiltrated about the prior incision superficially and deep. The AC joint and medial extent of the plate was localized under fluoroscopic guidance and the corresponding part of the prior incision was then opened sharply through tissue full-thickness down to hardware. The AC joint distal clavicle hardware and screws were all covered with maya tissue. The distal screws were localized in the anterior margin of the plate cleared using elevator. The distal locking screw and then cortex screw were removed. The incision was carried slightly medially to allow for addition medial excursion of the tissues. The anterior and superior margin of the plate was cleared again of maya tissue using an elevator. The next lateral screw followed by the last lateralmost screw were removed in entirety. C-arm fluoroscopy confirmed complete screw removal. There was no spurring or raise of distal clavicle. Hook plate remained firmly in place. Various elevators were then used to free the plate from significant healing scar tissue along the anterior and superior margin preserving tissue for subsequent repair. The plate was then lifted and rotated forward so as not to disrupt the AC joint or cause damage with the hook aspect and then rotated forward up and out allowing the hook aspect to slide out of the posterior aspect of the AC joint atraumatically. The distal clavicle was then tested manually and demonstrated excellent stability both horizontal and vertical. Under fluoroscopic guidance bone clamps were used to test the clavicle, which again demonstrated excellent stability with physiologic motion and no superior raise on stress testing. Fluoroscopic images were obtained showing complete hardware removal and stable distal clavicle and AC joint. The wound was irrigated. The superior exposed clavicle was then smoothed of rough bone about the plate scallops and the screw holes were lightly abraded. The wound was copiously irrigated normal saline. Hemostasis readily achieved. An additional 20 cc of 0.25% plain bupivacaine was infiltrated about the deep and superficial tissues. Strong deep tissue was then closed over the distal clavicle using 2-0 Monocryl in a fbfhbs-je-zbahl fashion. Subcutaneous tissue was then closed in 2-0 Monocryl in a buried interrupted fashion. The skin was closed using 3-0 Monocryl in a running subcuticular fashion. Skin glue was applied over the incision allowed to dry and then a Mepilex Band-Aid applied. The patient awoke from anesthesia without complication and was transferred to the recovery room in a stable condition.
[2021-06-21 15:01] VITALS: BP 105/62; PULSE 52; RESP 16; TEMP 36.3; O2SAT 99
[2021-06-21] MEDS: oxyCODONE 5 MG TAB PO (15:15)
[2021-06-21 15:31] VITALS: BP 128/78; PULSE 53; RESP 16; TEMP 36.4; O2SAT 98
--- NOTE | 2021-06-21 17:06 | W.ANESPOSTOP ---
Postoperative Evaluation Date, Time and Location Date Performed: 06/21/21 Time Performed: 17:07 Patient Location: Day Surgery Unit Vital Signs Most Recent Imported Vital Signs: Most Recent Vital Signs Temp Pulse Resp BP Pulse Ox 36.4 C L 53 L 16 128/78 98 06/21/21 15:31 06/21/21 15:31 06/21/21 15:31 06/21/21 15:31 06/21/21 15:31 Pain Score Most Recent Pain Score: Most Recent Pain Score Pain Level 6 06/21/21 15:31 Assessment Mental Status: Awake (Alert & Oriented to Patient Baseline) Airway and Respiratory Function: Patent airway with normal (patient baseline) respiratory exam Cardiovascular Function: Hemodynamically Stable Hydration Status: Adequately Hydrated Nausea & Vomiting: No Nausea or Vomiting Pain: Pt. Denies Any Pain Peripheral Nerve Block: Patient did not receive a nerve block Postoperative Comments:: Patient discharged prior to anesthesia being able to see him. Per nursing no complaints and patient did well
== END 2021-06-21 15:40 | disposition home or self-care (01) ==
PROVIDERS: PCP Family Medicine; Visit Provider Student in an Organized Health Care Education/Training Program
PROC: (CPT 20680; principal; 2021-06-21 13:00)
DX: Z47.2 Encounter for removal of internal fixation device (principal); S43.109D Unspecified dislocation of unspecified acromioclavicular joint, subsequent encounter
CPT/HCPCS: 20680; 87635; 73020; J0690; J1100; J1885; J2001; J2405; J2704

== ENCOUNTER 2021-07-04 14:43 | Outpatient (CLI) | payer OTHER, SELFPAY ==
--- NOTE | 2021-07-04 14:30 | DI.RAD_ITS ---
Exam(s) XR SHOULDER LT 1V EXAM: XR SHOULDER LT 1V CLINICAL HISTORY: follow up. TECHNIQUE: 2D digital imaging was performed. COMPARISON: CR,XR XR SHOULDER LT COMPLETE 2+V from 03/11/2021 CR XR CLAVICLE LT from 06/13/2021 CR XR CLAVICLE LT from 06/13/2021 FINDINGS: There has been removal of the left clavicle and AC joint hardware which was evident on the 06/13/2021 images. No remaining metallic density. No radiographic evidence of osteomyelitis. Slight offset o f the AC joint is noted, proximally 4 millimeters. No osseous lesions. No radiographic evidence of osteomyelitis. IMPRESSION: DATA REPOSITORY: RADIATION DOSE DELIVERED:
== END 2021-07-04 14:44 | disposition home or self-care (01) ==
LOC: DIORS 14:43
PROVIDERS: PCP Family Medicine; Referring Provider Family Medicine; Visit Provider Physician Assistant Surgical
DX: S43.085D Other dislocation of left shoulder joint, subsequent encounter (principal)
CPT/HCPCS: 73020

== ENCOUNTER 2021-10-17 02:03 | Outpatient (CLI) | payer OTHER, SELFPAY ==
[2021-10-17] MEDS: Gadoterate meglumine 20 ML VIAL IVP (12:42)
--- NOTE | 2021-10-17 12:55 | DI.MRI_ITS ---
Exam(s) MR IAC BRAIN WO/W EXAM: MR IAC BRAIN WO/W CLINICAL HISTORY: ASYMMETRIC [place], ACOUSTIC TRAUMA,[id number] TECHNIQUE: MR examination of the brain was performed according to the usual protocol with additiona l multiplanar high-resolution pre and post contrast imaging the posterior fossa. Whole brain axial T 1 weighted imaging was also obtained post contrast. COMPARISON: No exams were available for comparison FINDINGS: The ventricular system is normal in appearance. There is no mass lesion or enhancing lesion in the b rain. No significant intracranial signal abnormality seen. Diffusion-weighted imaging shows no diffusion restriction to suggest cerebral infarction. Susceptibility weighted imaging shows no evidence of intracranial hemorrhage. The orbital and temporal bone structures appear intact. The pituitary appears intact. There is normal flow void in the chrrth-rh-Dnxakx vasculature. Imaging of the posterior fossa region shows no abnormality of the cerebellum or alvarez. The internal a uditory canals and inner and middle ear structures appear normal. There is no mass lesion or enhanci ng lesion. IMPRESSION: Negative brain MRI with attention to the posterior fossa structures as described above. No mass lesi on or enhancing lesion. RADIATION DOSE DELIVERED: Total DLP
== END 2021-10-17 02:23 ==
PROVIDERS: PCP Family Medicine; Visit Provider Occupational Therapist
DX: H83.3X9 Noise effects on inner ear, unspecified ear (principal)
CPT/HCPCS: 70553

== ENCOUNTER 2022-01-05 14:24 | Emergency (ER) | payer OTHER, SELFPAY ==
[2022-01-05 14:28] VITALS: BP 145/86; PULSE 74; RESP 14; TEMP 36.6; O2SAT 97
--- NOTE | 2022-01-05 14:52 | ED.GENADUL_ITS ---
Discharge Plan Disposition Patient Disposition: HOME Condition: Stable Discharge Details Clinical Impression: Iritis, traumatic Primary Care Provider: Gemma Cevallos ED Provider: Jacob Alexandre Home Meds and New Rx's Prescriptions: No Action No Known Home Meds 0RF Discharge Instructions Instructions: Iritis (ED) Additional Instructions: You may continue to take fvoi-rvd-onriqce acetaminophen as needed for pain control. It is very important that you rest this evening and do not perform any physical activities. Dr. Lemus salmon troll fisher at [facility] will see you tomorrow morning at 9 AM in the eye clinic office 4B. It is very important that you make this appointment to double check your vision and obtain clearance for work return or restrictions as needed. If you have any new or significant worsening of symptoms please feel free to call [facility] and speak to salmon troll fisher on-call for advice before going to the emergency department but you may always feel free to come to the emergency department and we will also attempt to contact ophthalmology. Stand Alone Forms: Work Release Referrals: [facility] [Outside] (Tomorrow morning at 9 AM in the eye clinic office 4B) Discharge Data Discharge Date/Time-TO BE ENTERED AT DEPARTURE: 01/05/22 16:29 Medical Decision Making Patient presenting to the emergency department for chief complaint of left eye trauma. Was playing with Nerf guns with child and significant other when one of the foam darts with blue rubber tip struck him directly in the left eye while it was open. Patient immediately removed contact but does state immediate visi on change that occurred after injury. Physical exam shows a somewhat fixed nonreactive left pupil with diffuse opacification/cloudy anterior chamber and some question of possible subtle hyphema. EOMs are intact, patient does have color intact in affected eye and can see objects but significant vision change with no identification of objects. Plan concern for significant eye trauma. I did call [facility] and requested consult with ophthalmology. Spoke to [facility] Dr. Lemus with ophthalmology. He stated possible developing hyphema and traumatic iritis is most likely cause to patient's symptoms. He recommended strict rest and sleeping with head of bed elevated with use of acetaminophen as needed for discomfort and to be seen tomorrow morning at 9 AM in their office for evaluation. Stated no need at this time for emergent transfer but patient may contact [facility] for any change in condition or worsening. Patient is in agreement with this plan of care and states full understanding of recommendations. After discussion of diagnosis and plan of care patient has no further needs, questions, or concerns and states clear understanding to return to the emergency department for any worsening symptoms. HPI General Mode of arrival: ambulatory . Date/Time Provider Initiated Documentation: 01/05/22 14:45 . Limitations to Documentation: no limitations . Information obtained by: patient . History of Present Illness 31 year old M presents to the emergency department with the chief complaint of left neye trauma, with intensity rated at 1. Quality is described as aching, and is localized to the left. Patient reports no radiation. Patient started experiencing this minute(s) (15) and it has been constant. improves with No relieving factors improve symptom(s), No exacerbating factors reported . Patient notes no other symptoms.. Patient did receive the following treatments prior to arrival, none Related Data Home Medications Medication Instructions Recorded Confirmed Unknown [No Known Home Meds] 01/05/22 01/05/22 Allergies Allergy/AdvReac Type Severity Reaction Status Date / Time [facility] Allergy Severe HIVES Verified 01/05/22 14:36 Penicillins Allergy Severe HIVES Verified 01/05/22 14:36 General Stated Complaint: EyeProblem KYLE: 2 Review of Systems Narrative: 6 systems reviewed and unremarkable with pertinent review of systems marked below Constitutional Constitutional: Denies headache(s) Eyes Eyes: Reports as per HPI, Denies blind spots, Reports blurry vision, Reports change in vision, Reports dry eyes, Reports requires corrective lenses and Re ports photophobia ENT Ears, Nose, Mouth, and Throat: Denies facial pain, Denies headache(s) and Denies nasal trauma Neurologic Neurologic: Denies headache(s) PFSH All Active Problems (Updated 01/05/22 @ 16:17 by Jacob Alexandre NP) Iritis, traumatic (Acute) Acromioclavicular separation (Acute 03/11/21) s/p ORIF with hook plate DOS: 03/16/2021 s/p removal of hardware 06/21/2021 Medical History No significant past medical history Surgical History H/O shoulder surgery (R) RTCR, BT Social History Smoking/Tobacco Use Status: Current-Occasional Tobacco Type: smokeless tobacco Smoking risk assessment performed?: Yes Alcohol Intake: current Alcohol Intake frequency: a few times a week Drug use: Never Substance use type: does not use Current gender identity: male Do you feel safe at home: Yes Do you feel safe in your relationship?: Yes Exam Const General: cooperative, no acute distress and not ill appearing Orientation: alert, awake and oriented x3 HENMT Head: normal to inspection, normocephalic and atraumatic Ears: hearing grossly normal bilaterally Mouth: moist mucous membranes Eyes Alignment and Position: alignment normal Periorbital: periorbital findings normal Eyelids: eyelids normal Conjunctivae: conjunctivae normal Sclera: sclerae normal Cornea: corneas abnormal on the left fluorescein used, diffuse opacification and edema and fluorescein used Pupils: not reactive on the left EOM: EOM intact bilaterally Direct ophthalmoscopy: anterior chamber abnormal hyphema noted on the left Resp Effort & Inspection: normal respiratory effort, able to speak in complete sentences and no respiratory distress Skin General skin exam: no rashes or lesions noted Neuro General: patient alert, patient awake, patient oriented x3 and moves all extremities Course Vital Signs Vital signs: Vital Signs Temperature 36.6 C 01/05/22 14:28 Pulse 74 01/05/22 14:28 Respiratory Rate 14 01/05/22 14:28 Blood Pressure 145/86 H 01/05/22 14:28 Pulse Oximetry 97 01/05/22 14:28 Temperature 36.6 C 01/05/22 14:28 Temperature Source Skin 01/05/22 14:28 Pulse 74 01/05/22 14:28 Respiratory Rate 14 01/05/22 14:28 Respiratory Effort 01/05/22 14:37 Blood Pressure 145/86 H 01/05/22 14:28 Blood Pressure Position Supine 01/05/22 14:28 Pulse Oximetry 97 01/05/22 14:28 Oxygen Delivery Method Room Air 01/05/22 14:28 Oxygen Flow Rate 0 01/05/22 14:28 Pain Level 2 01/05/22 14:28 PAWSS Have you Been Recently Intoxicated or Drunk Within the Last 30 days?: No Have you Ever Experienced Previous Episodes of Alcohol Withdrawal?: No Have you ever Experienced Withdrawal Seizures?: No Have you ever Experienced Delirium Tremens(DT)s?: No Have you ever undergone Alcohol Rehabilitation Treatment (i.e, inpt ot outpatient treatment programs)?: No Have you ever Experienced Blackouts?: No Have you ever Combined Alcohol with other Downers within the last 90 days?: No Have you ever Combined Alcohol with any other Substance of Abuse during the last 90 days?: No Positive Blood Alcohol level on Presentation? [PCS.BAL]: No Evidence of Increased Autonomic Activity (i.e. HR>120, tremor, sweating, agitation, nausea)?: No Result: 0
== END 2022-01-05 16:29 | disposition home or self-care (01) ==
PROVIDERS: Emergency Provider Nurse Practitioner Family; PCP Family Medicine
DX: H20.042 Secondary noninfectious iridocyclitis, left eye (principal); W20.8XXA Other cause of strike by thrown, projected or falling object, initial encounter
CPT/HCPCS: 99283

== ENCOUNTER 2025-04-26 17:12 | Outpatient (CLI) | payer OTHER, SELFPAY ==
--- NOTE | 2025-04-26 16:45 | DI.RAD_ITS ---
Exam(s) XR TIB/FIB RT EXAM: XR TIB/FIB RT CLINICAL HISTORY: M79.604 Pain rt leg, evaluate pathology - soft tissue injury v fx. TECHNIQUE: 2D digital imaging was performed. COMPARISON: No exams were available for comparison FINDINGS: Two views-AP and lateral No evidence of fracture of the tibia and fibula. No radiopaque foreign bodies. No gas in the soft tissues. Bone density normal. No osseous lesions. IMPRESSION: No significant osseous findings in the tibia and fibula. DATA REPOSITORY: RADIATION DOSE DELIVERED:
--- NOTE | 2025-04-26 17:52 | DI.VRAD_ITS ---
PROCEDURE INFORMATION: Exam: XR Right Tibia and Fibula Exam date and time: 04/26/2025 4:59 PM Age: 35 years old Clinical indication: Injury or trauma; Soft tissue injury; Swelling (edema); Lower leg; Right; Injury date: 04/26/2025 TECHNIQUE: Imaging protocol: Radiologic exam of the right tibia and fibula. Views: 2 views. COMPARISON: No relevant prior studies available. FINDINGS: Bones/joints: Incidentally noted is cortical thickening in the mid fibula, which is nonspecific. No evidence of acute fracture or dislocation. The alignment is anatomic. Soft tissues: Normal. IMPRESSION: 1. No acute fracture or dislocation. 2. Incidentally noted cortical thickening in the mid fibula. This finding is nonspecific but can be seen in the setting of chronic stress injury. Clinical correlation is recommended. If there is further clinical concern, dedicated cross-sectional imaging may be considered. Dictated and Authenticated by: Candace Nieves MD. Orderin Reva Weldon MD
== END 2025-04-26 17:32 ==
LOC: DI 17:12
PROVIDERS: PCP Family Medicine; Visit Provider Nurse Practitioner Family
DX: M79.604 Pain in right leg (principal)
CPT/HCPCS: 73590

== ENCOUNTER 2025-07-06 13:11 | Outpatient (CLI) | payer OTHER, SELFPAY ==
--- NOTE | 2025-07-06 08:15 | DI.RAD_ITS ---
Exam(s) XR SHOULDER RT COMPLETE 2+V EXAM: XR SHOULDER RT COMPLETE 2+V CLINICAL HISTORY: RIGHT SHOULDER PAIN. TECHNIQUE: 2D digital imaging was performed of the right shoulder. Two images were obtained. Grashey and axillary views were obtained. COMPARISON: CR RIGHT SHOULDER COMPLETE from 07/13/2013 CR RIGHT SHOULDER COMP POST REDUC from 07/13/2013 FINDINGS: BONES: No acute fracture is present. No bony destructive lesion is seen. JOINTS: No dislocation present. The acromioclavicular joint is unremarkable. Moderate degenerative changes are seen at the glenohumeral joint characterized by joint space narrowing and osteophytes. SOFT TISSUE: Normal. IMPRESSION: Moderate degenerative changes at the glenohumeral joint. DATA REPOSITORY: RADIATION DOSE DELIVERED:
== END 2025-07-06 13:12 | disposition home or self-care (01) ==
LOC: DIORS 13:11
PROVIDERS: PCP Family Medicine; Visit Provider Student in an Organized Health Care Education/Training Program
DX: M25.311 Other instability, right shoulder (principal); M19.011 Primary osteoarthritis, right shoulder
CPT/HCPCS: 73030

== ENCOUNTER 2025-08-03 01:14 | Outpatient (CLI) | payer OTHER, SELFPAY ==
--- NOTE | 2025-08-03 06:15 | DI.MRI_ITS ---
Exam(s) MR UPPER JOINT RT WO EXAM: MR UPPER JOINT RT WO CLINICAL HISTORY: ? LABRAL TEAR,instability rt shoulder joint,m25.311. TECHNIQUE: Multiplanar multisequence MRI was performed. CR XR SHOULDER RT COMPLETE 2+V from 07/06/2025 FINDINGS: BONES: There is no fracture or contusion pattern. Small subchondral cysts are seen in the lateral aspect of the humeral head. JOINTS: The acromioclavicular joint is normal. There are mild degenerative changes seen at the glenohumeral joint. There is a small osteophytes seen at the inferior aspect of the humeral head. There is also narrowing of the glenohumeral joint space. There is a small amount of fluid within the joint space. TENDONS: Supraspinatus: There is tendinosis of the supraspinatus tendon. There is a focus of hyperintense signal seen within the substance of the tendon at its insertion site consistent with a small partial tear. Infraspinatus: There is tendinosis of the infraspinatus tendon. Subscapularis: There is tendinosis of the subscapularis tendon. Teres Minor: Unremarkable. Biceps and [place]: Unremarkable. MUSCLES: There is no significant muscular fatty atrophy. GLENOID LABRUM: There is some heterogeneity and decrease in size of the posterior superior labrum which may represent degeneration or tear. There is also some decrease in size of the anterior inferior labrum. This may be chronic secondary to the patient's prior labral tear. SOFT TISSUES: Unremarkable. LIGAMENTS: Unremarkable. OTHER: There is a small amount of fluid in the subdeltoid bursa. IMPRESSION: 1. Heterogeneity and decrease in size of the posterior superior labrum which may represent degeneration and/or tear. 2. There is also some decrease in size of the anterior inferior labrum which may be chronic secondary to the patient's prior labral tear. 3. Degenerative changes seen at the glenohumeral joint. 4. Tendinosis involving the supraspinatus, infraspinatus and subscapularis tendons. Hyperintense focus seen in the substance of the supraspinatus tendon suspicious for a small partial tear. DATA REPOSITORY:
== END 2025-08-03 01:34 ==
LOC: DI 01:14
PROVIDERS: PCP Family Medicine; Visit Provider Student in an Organized Health Care Education/Training Program
DX: M25.311 Other instability, right shoulder (principal)
CPT/HCPCS: 73221